=== PATIENT | male | born 1960 | race Asian ===

== ENCOUNTER 2023-10-21 07:42 | Emergency (ER) | payer BC ==
[~2023-10-21] VITALS: Ht 162.6 cm; Wt 68.5 kg
[2023-10-21] MEDS ORDERED: MECLIZINE HCL 25 MG TABLET ONE (08:34)
[2023-10-21] MEDS ORDERED: ONDANSETRON HCL/PF 4 MG/2 ML VIAL ONE (08:34)
[2023-10-21] MEDS: ONDANSETRON HCL/PF - ER 4 MG/2 ML VIAL IV ONE (08:40)
[2023-10-21] MEDS: MECLIZINE HCL 25 MG TABLET PO ONE (08:40)
[2023-10-21 08:49] LABS: BASOPHILS % (AUTO) 0.5 % (0.0-2.0); EOSINOPHILS # (AUTO) 0.1 K/uL (0.0-0.7); EOSINOPHILS % (AUTO) 1.2 % (0.0-6.0); HEMATOCRIT 44 % (39-51); HEMOGLOBIN 14.6 g/dL (13.5-17.5); LYMPHOCYTES # (AUTO) 2.2 K/uL (0.8-4.8); LYMPHOCYTES % (AUTO) 29.4 % (20.0-44.0); MEAN CORPUSCULAR HEMOGLOBIN 30 PG (26.0-33.0); MEAN CORPUSCULAR HGB CONC 33 g/dl (31.0-36.0); MEAN CORPUSCULAR VOLUME 90 fL (80-96); MONOCYTES # (AUTO) 0.6 K/uL (0.1-1.30); MONOCYTES % (AUTO) 7.6 % (2.0-12.0); NEUTROPHILS # (AUTO) 4.5 K/uL (1.8-8.9); NEUTROPHILS % (AUTO) 61.3 % (43.0-81.0); PLATELET COUNT (AUTO) 287 K/uL (150-450); RED CELL DISTRIBUTION WIDTH 14.3 % (11.5-15.0); WHITE BLOOD COUNT (AUTO) 7.3 K/uL (4.3-11.0)
[2023-10-21 09:11] LABS: ALANINE AMINOTRANSFERASE 23 U/L (12-78); ALBUMIN 3.4 g/dL (3.4-5.0); ALKALINE PHOSPHATASE 71 U/L (46-116); ASPARTATE AMINOTRANSFERASE 21 U/L (15-37); BILIRUBIN,DIRECT 0.1 mg/dL (0.0-0.2); BILIRUBIN,TOTAL 0.6 mg/dL (0.2-1.0); CALCIUM, SERUM 8.7 mg/dL (8.5-10.1); CARBON DIOXIDE 25 mmol/L (21-32); CHLORIDE 103 mmol/L (98-107); CREATININE 1.3 mg/dL (0.6-1.3); GLUCOSE 154 mg/dL (74-106); NT-PRO BNP 41 pg/mL (0-125); POTASSIUM 3.2 mmol/L (3.5-5.1); SODIUM SERUM 141 mmol/L (136-145); TOTAL PROTEIN, SERUM 7.4 g/dL (6.4-8.2); UREA NITROGEN, BLOOD 22 mg/dL (7-18)
[2023-10-21] MEDS ORDERED: MECL-159 PO (10:22)
[2023-10-21 11:01] VITALS: BP 152/94; TEMP 98.1; O2SAT 95
== END 2023-10-21 11:23 | disposition home or self-care (01) ==
LOC: ER 07:48
DX: R42 Dizziness and giddiness (principal); R11.0 Nausea; I10 Essential (primary) hypertension; Z87.19 Personal history of other diseases of the digestive system
CPT/HCPCS: 99285; 96374; 70450; 71045; 93005; 85025; 80048; 80076; 36415; 84484; 83880; J8597; J2405 ×2